=== PATIENT | male | born 1975 | race Caucasian/White ===

== ENCOUNTER 2017-11-09 08:41 | Emergency (ER) | payer SELFPAY ==
[2017-11-09] MEDS: SOD CHLORIDE 0.9% 1,000 ML IV (09:41)
[2017-11-09] MEDS: morphine 4 MG/ML VIAL IV ×3 (09:46→13:08)
[2017-11-09] MEDS: ONDANSETRON 4 MG INJ IV ×2 (09:46→09:54)
[2017-11-09] MEDS: SODIUM CHLORIDE 0.9% 1L BAG IV* (09:46)
[2017-11-09 10:17] LABS: ADD MAN DIFF? NO
[2017-11-09 10:23] LABS: BASOPHIL # 0.1 10^3/ul (0.0-0.1); BASOPHILS % 0.5 % (0.0-2.0); EOSINOPHILS # 0.3 10^3/ul (0.0-0.5); EOSINOPHILS % 2.5 % (0.0-7.0); HEMATOCRIT 45.1 % (42.0-52.0); HEMOGLOBIN 14.4 g/dl (14.0-18.0); LYMPHOCYTES # 1.1 10^3/ul (0.8-2.9); LYMPHOCYTES % 8.4 % (15.0-51.0); MEAN CORPUSCULAR HEMOGLOBIN 32.1 pg (29.0-33.0); MEAN CORPUSCULAR HGB CONC 31.9 g/dl (32.0-37.0); MEAN CORPUSCULAR VOLUME 100.7 fl (82.0-101.0); MEAN PLATELET VOLUME 10.5 fl (7.4-10.4); MONOCYTE # 0.6 10^3/ul (0.3-0.9); MONOCYTES % 4.5 % (0.0-11.0); NEUTROPHIL # 10.9 10^3/ul (1.6-7.5); NEUTROPHILS % 83.6 % (39.0-77.0); PLATELET COUNT 321 10^3/UL (140-415); RED BLOOD COUNT 4.48 10^6/ul (4.70-6.10); RED CELL DISTRIBUTION WIDTH 12.6 % (11.5-14.5)
[2017-11-09] MEDS: CEFTRIAXONE 1 GM/50 ML (PMX) 50 ML IVPB (10:26)
[2017-11-09 10:52] LABS: LACTIC ACID 3.4 mmol/L (0.5-2.0)
[2017-11-09 11:28] LABS: ALANINE AMINOTRANSFERASE 30 IU/L (13-69); ALBUMIN 3.7 g/dl (3.3-4.9); ALKALINE PHOSPHATASE 119 IU/L (42-121); ANION GAP 14 (8-16); ASPARTATE AMINO TRANSFERASE 38 IU/L (15-46); BILIRUBIN,INDIRECT 0.2 mg/dl (0-1.1); BILIRUBIN,TOTAL 0.2 mg/dl (0.2-1.3); BLOOD UREA NITROGEN 26 mg/dl (7-20); CALCIUM 9.3 mg/dl (8.4-10.2); CARBON DIOXIDE 29 mmol/L (21-31); CHLORIDE 105 mmol/L (97-110); CREATININE 1.45 mg/dl (0.61-1.24); GLUCOSE 111 mg/dl (70-220); LIPASE 21 U/L (23-300); POTASSIUM 4.7 mmol/L (3.5-5.1); SODIUM 143 mmol/L (135-144); TOTAL PROTEIN 7.8 g/dl (6.1-8.1)
[2017-11-09] MEDS ORDERED: ONDANSETRON 4 MG INJ IV (11:30)
[2017-11-09] MEDS ORDERED: ACETAMINOPHEN 325 MG TAB PO (11:30)
[2017-11-09 12:38] LABS: ADD UMIC YES; UR ASCORBIC ACID 20 mg/dL (NEGATIVE); UR BILIRUBIN (Dip) NEGATIVE (NEGATIVE); UR BLOOD (Dip) 2+ mg/dL (NEGATIVE); UR CLARITY CLEAR (CLEAR); UR COLOR YELLOW (YELLOW); UR GLUCOSE (Dip) NEGATIVE (NEGATIVE); UR KETONES (Dip) NEGATIVE (NEGATIVE); UR LEUKOCYTE ESTERASE (Dip) 3+ Leu/ul (NEGATIVE); UR NITRITE (Dip) NEGATIVE (NEGATIVE); UR RBC 43 /HPF (0-5); UR TOTAL PROTEIN (Dip) 1+ mg/dl (NEGATIVE); UR UROBILINOGEN (Dip) NEGATIVE (NEGATIVE); UR WBC 23 /HPF (0-5)
[2017-11-09 13:35] LABS: LACTIC ACID 1.9 mmol/L (0.5-2.0)
== END 2017-11-09 14:31 | disposition left against medical advice (07) ==
LOC: E/R 08:41
DX: N20.0 Calculus of kidney (principal); R65.20 Severe sepsis without septic shock; A41.9 Sepsis, unspecified organism; R40.2142 Coma scale, eyes open, spontaneous, at arrival to emergency department; R40.2252 Coma scale, best verbal response, oriented, at arrival to emergency department; R40.2362 Coma scale, best motor response, obeys commands, at arrival to emergency department; F17.210 Nicotine dependence, cigarettes, uncomplicated
CPT/HCPCS: 36415; 74176; 80053; 81001; 83605; 83690; 85025; 87040; 87086; 96374; 96375; 96376; 99291-25

== ENCOUNTER 2017-12-20 23:19 | Emergency (ER) | payer SELFPAY | END 2017-12-21 03:11 | disposition left against medical advice (07) | LOC: E/R 23:19 | DX: Z53.21 Procedure and treatment not carried out due to patient leaving prior to being seen by health care provider (principal) ==

== ENCOUNTER 2019-01-14 16:18 | Observation (INO) | payer OTHER ==
[2019-01-14 18:59] LABS: ADD MAN DIFF? NO
[2019-01-14 19:06] LABS: WHITE BLOOD COUNT 11.6 10^3/ul (4.8-10.8)
[2019-01-14 19:06] LABS: BASOPHILS % 0.2 % (0.0-2.0); HEMATOCRIT 41.8 % (42.0-52.0); HEMOGLOBIN 14.1 g/dl (14.0-18.0); LYMPHOCYTES # 1.1 10^3/ul (0.8-2.9); LYMPHOCYTES % 9.2 % (15.0-51.0); MEAN CORPUSCULAR HGB CONC 33.7 g/dl (32.0-37.0); MEAN CORPUSCULAR VOLUME 97.9 fl (82.0-101.0); MEAN PLATELET VOLUME 9.8 fl (7.4-10.4); MONOCYTE # 0.9 10^3/ul (0.3-0.9); MONOCYTES % 7.9 % (0.0-11.0); NEUTROPHIL # 9.6 10^3/ul (1.6-7.5); NEUTROPHILS % 82.4 % (39.0-77.0); PLATELET COUNT 323 10^3/UL (140-415); RED BLOOD COUNT 4.27 10^6/ul (4.70-6.10); RED CELL DISTRIBUTION WIDTH 11.4 % (11.5-14.5)
[2019-01-14 19:20] LABS: ADD UMIC YES; UR ASCORBIC ACID NEGATIVE (NEGATIVE); UR BACTERIA FEW /HPF (NONE SEEN); UR BILIRUBIN (Dip) NEGATIVE (NEGATIVE); UR BLOOD (Dip) 1+ mg/dL (NEGATIVE); UR CLARITY CLOUDY (CLEAR); UR COLOR YELLOW (YELLOW); UR GLUCOSE (Dip) NEGATIVE (NEGATIVE); UR KETONES (Dip) TRACE mg/dL (NEGATIVE); UR LEUKOCYTE ESTERASE (Dip) 3+ Leu/ul (NEGATIVE); UR NITRITE (Dip) NEGATIVE (NEGATIVE); UR RBC 20 /HPF (0-5); UR SPECIFIC GRAVITY (Dip) 1.012 (1.003-1.030); UR SQUAMOUS EPITHELIAL CELL FEW /HPF (FEW); UR TOTAL PROTEIN (Dip) 1+ mg/dl (NEGATIVE); UR UROBILINOGEN (Dip) NEGATIVE (NEGATIVE); UR WBC > 182 /HPF (0-5)
[2019-01-14] MEDS: ACETAMINOPHEN 325 MG TAB PO (19:20)
[2019-01-14] MEDS: PIPER-TAZO 3.375 GM IV (PMX) 100 ML IVPB (19:21)
[2019-01-14] MEDS: SODIUM CHLORIDE 0.9% 1L BAG IV* (19:21)
[2019-01-14] MEDS: HYDROmorphONE 0.5 MG/0.5 ML SYG IV (19:21)
[2019-01-14 19:24] LABS: INR 1.01; PROTIME 13.4 Sec (11.9-14.9)
[2019-01-14 19:25] LABS: PARTIAL THROMBOPLASTIN TIME 32.6 Sec (23.0-35.0)
[2019-01-14 19:37] LABS: ALANINE AMINOTRANSFERASE 43 IU/L (13-69); ALBUMIN 3.9 g/dl (3.3-4.9); ALBUMIN/GLOBULIN RATIO 1.11; ALKALINE PHOSPHATASE 84 IU/L (42-121); ANION GAP 8 (5-13); ASPARTATE AMINO TRANSFERASE 36 IU/L (15-46); BILIRUBIN,INDIRECT 1.1 mg/dl (0-1.1); BILIRUBIN,TOTAL 1.1 mg/dl (0.2-1.3); BLOOD UREA NITROGEN 17 mg/dl (7-20); CALCIUM 9.1 mg/dl (8.4-10.2); CARBON DIOXIDE 24 mmol/L (21-31); CHLORIDE 102 mmol/L (97-110); CREATININE 1.13 mg/dl (0.61-1.24); Estimated GFR > 60 mL/min (>60); GLUCOSE 109 mg/dl (70-220); SODIUM 134 mmol/L (135-144); TOTAL PROTEIN 7.4 g/dl (6.1-8.1)
[2019-01-14 19:48] LABS: TROPONIN-I < 0.012 ng/ml (0.000-0.120)
[2019-01-14] MEDS: CEFTRIAXONE 1 GM/50 ML (PMX) 50 ML IVPB (20:15)
[2019-01-14] MEDS ORDERED: KETOROLAC 15 MG INJ IV (21:30)
[2019-01-14 22:08] LABS: LACTIC ACID 0.9 mmol/L (0.5-2.0)
[2019-01-14] MEDS: HYDROmorphONE 1 MG/ML SYG IV (23:04)
[2019-01-15] MEDS: SOD CHLORIDE 0.9% 1,000 ML IV (00:48)
[2019-01-15] MEDS: TAMSULOSIN (SR) 0.4 MG CAP PO (00:48)
[2019-01-15 01:26] LABS: LACTIC ACID 2.5 mmol/L (0.5-2.0)
[2019-01-15] MEDS: SOD CHLORIDE 0.9% 500 ML IV (01:48)
[2019-01-15] MEDS: ACETAMINOPHEN 325 MG TAB PO (02:28)
[2019-01-15] MEDS: HYDROmorphONE 1 MG/ML SYG IV ×2 (04:18→07:35)
[2019-01-15 05:18] LABS: ADD MAN DIFF? NO
[2019-01-15 05:20] LABS: WHITE BLOOD COUNT 10.9 10^3/ul (4.8-10.8)
[2019-01-15 05:20] LABS: BASOPHILS % 0.4 % (0.0-2.0); EOSINOPHILS % 0.1 % (0.0-7.0); HEMATOCRIT 39.3 % (42.0-52.0); LYMPHOCYTES # 1.2 10^3/ul (0.8-2.9); LYMPHOCYTES % 11.2 % (15.0-51.0); MEAN CORPUSCULAR HEMOGLOBIN 32.9 pg (29.0-33.0); MEAN CORPUSCULAR HGB CONC 33.1 g/dl (32.0-37.0); MEAN CORPUSCULAR VOLUME 99.5 fl (82.0-101.0); MEAN PLATELET VOLUME 9.9 fl (7.4-10.4); MONOCYTE # 0.8 10^3/ul (0.3-0.9); MONOCYTES % 7.6 % (0.0-11.0); NEUTROPHIL # 8.7 10^3/ul (1.6-7.5); NEUTROPHILS % 80.3 % (39.0-77.0); PLATELET COUNT 303 10^3/UL (140-415); RED BLOOD COUNT 3.95 10^6/ul (4.70-6.10); RED CELL DISTRIBUTION WIDTH 11.2 % (11.5-14.5)
[2019-01-15] MEDS: LEVOFLOXACIN 750MG/D5W (PMX) 150 ML IVPB (05:20)
[2019-01-15 05:59] LABS: ALANINE AMINOTRANSFERASE 34 IU/L (13-69); ALBUMIN 3.2 g/dl (3.3-4.9); ALBUMIN/GLOBULIN RATIO 1.03; ALKALINE PHOSPHATASE 77 IU/L (42-121); ANION GAP 7 (5-13); ASPARTATE AMINO TRANSFERASE 29 IU/L (15-46); BLOOD UREA NITROGEN 15 mg/dl (7-20); CALCIUM 8.3 mg/dl (8.4-10.2); CARBON DIOXIDE 23 mmol/L (21-31); CHLORIDE 107 mmol/L (97-110); CHOL/HDL RATIO 3.6 RATIO; CHOLESTEROL 127 mg/dl (100-200); CREATININE 1.07 mg/dl (0.61-1.24); Estimated GFR > 60 mL/min (>60); GLUCOSE 102 mg/dl (70-220); HDL CHOLESTEROL 35 mg/dl (27-67); LDL CHOLESTEROL,CALCULATED 80 mg/dl; MAGNESIUM 1.7 mg/dl (1.7-2.5); POTASSIUM 3.8 mmol/L (3.5-5.1); SODIUM 137 mmol/L (135-144); TOTAL PROTEIN 6.3 g/dl (6.1-8.1); TRIGLYCERIDES 61 mg/dl (0-149)
[2019-01-15 07:04] LABS: THYROID STIMULATING HORMONE 0.678 MIU/L (0.465-4.680)
[2019-01-15 08:18] LABS: ETHANOL < 10.0 mg/dl (0-0)
[2019-01-15 08:25] LABS: HEMOGLOBIN A1C 4.7 % (0-5.9)
[2019-01-15] MEDS ORDERED: HYDROCODONE/APAP (5/325) TAB PO (10:00)
[2019-01-15] MEDS ORDERED: CEFTRIAXONE 2 GM/50 ML (PMX) 50 ML IVPB (21:30)
== END 2019-01-15 09:27 | disposition left against medical advice (07) ==
LOC: FTE 16:18 → PP2 21:08
PROVIDERS: Family Medicine
DX: A41.9 Sepsis, unspecified organism (principal); N13.6 Pyonephrosis
CPT/HCPCS: 71045; 74018; 74176; 80053; 80061; 80307; 81001; 83036; 83605; 83735; 84443; 84484; 85025; 85610; 85730; 87040-91; 87086; 93005; 96374; 96375; 99285-25; G0378